=== PATIENT | female | born 1955 | race Caucasian/White ===

== ENCOUNTER → 2021-08-01 | Outpatient (CLI) | payer BC ==
[~2021-08-01] MED LIST: FLEXERIL10 MG PO; NO HOME MEDICATIONS; NORCO 325 MG-51 TAB PO
[2021-08-01 10:46] LABS: HEMATOCRIT 32.4 % (37.0-47.0); HEMOGLOBIN 10.8 g/dl (12.5-16.0); MEAN CELL VOLUME 96 fl (80.0-100.0); MEAN CORPUSCULAR HEMOGLOBIN 32 pg (27-31); MEAN CORPUSCULAR HGB CONC 33 g/dl (33.0-37.0); MEAN PLATELET VOLUME 9.9 fl (7.4-10.4); PLATELET COUNT 152 K/mm3 (130-400); RED BLOOD COUNT 3.39 M/mm3 (4.10-5.30); REDCELL DISTRIBUTION WIDTH-CV 12.9 % (11.5-14.5)
[2021-08-01 10:57] LABS: INR 1.2 (0.8-3.0); PROTHROMBIN TIME 14.1 SECONDS (9.7-12.8)
[2021-08-01 11:09] LABS: ANION GAP 11 mmol/L (7-16); BLOOD UREA NITROGEN 20 mg/dL (10-20); C-REACTIVE PROTEIN 0.07 mg/dL (0.00-0.50); CALCIUM 9.3 mg/dL (8.4-10.2); CARBON DIOXIDE 24 mmol/L (23-31); CHLORIDE 101 mmol/L (98-107); CREATININE, serum 1.05 mg/dL (0.57-1.11); GLUCOSE 106 mg/dL (70-99); SODIUM 136 mmol/L (136-145)
[2021-08-01 11:18] LABS: ERYTHROCYTE SEDIMENTATION RATE 14 mm/hr (0-30)
[2021-08-01 11:30] LABS: THYROID STIMULATING HORMONE 0.995 uIU/mL (0.350-4.940)
[2021-08-01 11:31] LABS: TROPONIN-I < 0.010 ng/mL (0.00-0.033)
[2021-08-02 00:09] LABS: FOLATE (FOLIC ACID) 18.4 ng/mL (2.0-20.0)
[2021-08-06 15:58] LABS: LEAD 1.7 mcg/dL (<5.0)
== END ==
LOC: COL.LAB 10:03
PROVIDERS: Internal Medicine Interventional Cardiology
DX: C34.90 Malignant neoplasm of unspecified part of unspecified bronchus or lung (principal); I26.99 Other pulmonary embolism without acute cor pulmonale; J98.11 Atelectasis; M48.54XA Collapsed vertebra, not elsewhere classified, thoracic region, initial encounter for fracture

== ENCOUNTER → 2021-09-11 | Outpatient (CLI) | payer BC ==
[~2021-09-11] MED LIST changes: +ELIQUIS 5MG PO; +ONE-A-DAY ESSE1 EACH PO; +TAGRISSO80 MG PO; +TAXOL30; +TUMS500 MG PO; +VITAMIN D31000 IU PO
== END ==
LOC: COL.LAB 14:21
DX: E04.1 Nontoxic single thyroid nodule (principal)

== ENCOUNTER → 2021-09-18 | Outpatient (CLI) | payer BC ==
[~2021-09-18] VITALS: Ht 170.2 cm; Wt 59.1 kg
[2021-09-18 12:30] VITALS: BP 104/72; PULSE 99; TEMP 98.6
[2021-09-18 13:20] VITALS: BP 112/75; PULSE 99
== END ==
LOC: COL.RAD 11:57
DX: C73 Malignant neoplasm of thyroid gland (principal)

== ENCOUNTER 2021-12-17 14:03 | Outpatient (RCR) | payer BC | END 2022-01-12 | LOC: WSPT | DX: R26.9 Unspecified abnormalities of gait and mobility (principal) ==